=== PATIENT | female | born 1975 | race Caucasian/White ===

== ENCOUNTER 2017-03-21 13:00 | Emergency (ER) | payer BC, OTHER ==
--- NOTE | ~2017-03-21 | CR141 ---
[facility] A Service of [facility] & [facility] RADIOLOGY TEXT RESULTS PATIENT: YONNY GUPTA LOCATION: SED : 77 UNIT #: [id number] AGE: [address]: Negro Ramos SEX: F ORDER DR: [id number] [address] [address] [id number] E MR#: [id number] Acc #: [id number] NAME: YONNY GUPTA : 1975 SEX: F STUDY DATE/TIME: 03/21/2017 13:17 UNIT: SED ROOM: STUDY DESCRIPTION: CR Hand Min 3 Views Lt Attending Physician: Negro Ramos P.A.-C. Ordering Physician: Negro Ramos P.A.-C. Primary Care Physician: Gary Moy M.D. MEDICAL IMAGING REPORT This report is preliminary unless electronic signature is present. EXAM Left hand series dated 03/21/2017 COMPARISON Left wrist series dated 04/19/2016, left forearm series dated 03/21/2017. HISTORY Trauma to the left hand by moving couch yesterday with subsequent pain. FINDINGS Three views of the left hand were obtained. There is a complete fracture of the ulnar styloid process. It is well-corticated and is chronic appearing rather than acute. No significant adjacent soft tissue swelling. The distal radius, carpal bones, metacarpals and the phalanges do not demonstrate any significant abnormality. Dictated by... Ricky Valencia M.D. THIS IS AN ELECTRONICALLY VERIFIED REPORT Ricky Valencia M.D. at 03/23/2017 5:23 PM CPR/rnr TD: 03/21/2017 17:17 JOB #: [id number] MEDICAL IMAGING REPORT Page 1 of 1
--- NOTE | ~2017-03-21 | CR132 ---
[facility] A Service of [facility] RADIOLOGY TEXT RESULTS PATIENT: YONNY GUPTA LOCATION: SED : 77 UNIT #: [id number] AGE: [address]: Negro Ramos PAC SEX: F ORDER DR: [id number] [address] [address] [id number] E MR#: [id number] Acc #: [id number] NAME: YONNY GUPTA : 1975 SEX: F STUDY DATE/TIME: 03/21/2017 13:17 UNIT: SED ROOM: STUDY DESCRIPTION: CR Forearm 2 View Lt Attending Physician: Negro Ramos P.A.-C. Ordering Physician: Negro Ramos P.A.-C. Primary Care Physician: Gary Moy M.D. MEDICAL IMAGING REPORT This report is preliminary unless electronic signature is present. EXAM Left forearm series dated 03/21/2017. COMPARISON Left wrist series dated 04/19/2016. No prior forearm images. HISTORY Patient moved cough yesterday and ended up with forearm and left hand pain since then. FINDINGS Two views of the left forearm were obtained. AP and lateral views of the forearm show no evidence of fracture or destructive bone lesion. No periosteal elevation is seen. No radiodense foreign bodies are noted. Adjacent soft tissue structures are normal. IMPRESSION Normal forearm. Dictated by... Ricky Valencia M.D. THIS IS AN ELECTRONICALLY VERIFIED REPORT Ricky Valencia M.D. at 03/23/2017 5:23 PM CPR/tmw TD: 03/21/2017 17:08 JOB #: [id number] [facility] A Service [facility] RADIOLOGY TEXT RESULTS PATIENT: YONNY GUPTA LOCATION: SED : 77 UNIT #: [id number] AGE: [address]: Negro Ramos PAC SEX: F ORDER DR: MEDICAL IMAGING REPORT Page 1 of 1
[~2017-03-21 13:00] MED LIST: IBUPROFEN; IBUPROFEN800 MG PO; KLONOPIN PO; KLONOPIN0.5 M3 PO; NO MEDICATIONS; POLYTRIM O10 ML OPTH OP; VOLTAREN75 MG PO; ZOLOFT
== END 2017-03-21 14:26 | disposition home or self-care (01) ==
LOC: SED 13:00
DX: S60.222A Contusion of left hand, initial encounter (principal); S50.12XA Contusion of left forearm, initial encounter; R03.0 Elevated blood-pressure reading, without diagnosis of hypertension; F41.9 Anxiety disorder, unspecified; F17.210 Nicotine dependence, cigarettes, uncomplicated; Z79.1 Long term (current) use of non-steroidal anti-inflammatories (NSAID); Z88.5 Allergy status to narcotic agent; Z88.2 Allergy status to sulfonamides; Z88.8 Allergy status to other drugs, medicaments and biological substances; W22.8XXA Striking against or struck by other objects, initial encounter
CPT/HCPCS: 29280; 73090; 73130; 99283; J2310